=== PATIENT | female | born 1935 | race Caucasian/White ===

== ENCOUNTER 2022-05-21 06:00 | Day surgery (SDC) | payer OTHER ==
[~2022-05-21 06:00] MED LIST: CHILDREN'S ASPI81 MG PO; GLIMEPIRIDE1 MG; PEPCID AC10 MG PO; PROTONIX40 MG PO; TENORMIN100 M1 PO
== END 2022-05-21 10:45 | disposition home or self-care (01) ==
LOC: CIR.AMB 06:00
PROVIDERS: ATTEND Colon & Rectal Surgery
DX: R15.9 Full incontinence of feces (principal); Z20.822 Contact with and (suspected) exposure to COVID-19; Z88.0 Allergy status to penicillin; I10 Essential (primary) hypertension; K21.9 Gastro-esophageal reflux disease without esophagitis; Z79.84 Long term (current) use of oral hypoglycemic drugs; E11.9 Type 2 diabetes mellitus without complications
CPT/HCPCS: 64590; 95972; C1767